=== PATIENT | female | born 1985 | race Caucasian/White ===

== ENCOUNTER 2021-12-13 15:06 | Emergency (ER) | payer OTHER ==
[~2021-12-13 15:06] MED LIST: IBUPROFEN800 MG PO
[2021-12-13 15:41] LABS: BASOPHIL 0.6 % (0-2); EOSINOPHIL 5.7 % (0-5); HCT 41.1 % (37.0-47.0); HGB 13.5 g/dl (12.5-16.0); LYMPHOCYTE 35.2 % (15-48); MCH 27.9 pg (25.0-31.0); MCHC 32.8 g/dL (32.0-36.0); MCV 84.9 fL (78.0-100.0); MONOCYTE 10.7 % (0-12); MPV 11.3 fL (6.0-9.5); NEUTROPHIL 47.5 % (41-80); NRBC 0; PLT 209 K/uL (150-400); RBC 4.84 M/uL (4.20-5.40); RDW 13.9 % (11.5-14.0); WBC 7.8 K/uL (4.0-10.5)
[2021-12-13 15:44] LABS: ALBUMIN 3.8 g/dL (3.4-5.0); BILIRUBIN - TOTAL 0.6 mg/dL (0.2-1.0); BUN/CREAT RATIO (CALC) 21.3 RATIO; CREATININE 0.75 mg/dL (0.51-0.95); GLOBULIN (CALCULATION) 3.8 g/dL; POTASSIUM 3.6 mmol/L (3.5-5.1); TOTAL PROTEIN 7.6 g/dL (6.4-8.2)
[2021-12-13 15:55] LABS: BILIRUBIN NEGATIVE (NEGATIVE); BLOOD 1+ Ery/uL (NEGATIVE); CLARITY CLEAR (CLEAR); COLOR YELLOW (YELLOW); GLUCOSE (U) NORMAL (NORMAL); LEUKOCYTES NEGATIVE Leu/uL (NEGATIVE); NITRITE NEGATIVE (NEGATIVE); PROTEIN NEGATIVE (NEGATIVE); SPECIFIC GRAVITY >=1.030 (1.001-1.030); UROBILINOGEN 0.2 mg/dL (0.2-1.0); pH 5.5 (5.0-9.0)
[2021-12-13 16:04] LABS: BACTERIA 1+
[2021-12-13] MEDS ORDERED: PEPCID AC20 MG PO (18:55)
[2021-12-13] MEDS ORDERED: REGLAN5 MG PO (18:55)
== END 2021-12-13 19:25 | disposition home or self-care (01) ==
LOC: FER 15:06
PROVIDERS: Physician Assistant
DX: R10.13 Epigastric pain (principal); I10 Essential (primary) hypertension; Z79.899 Other long term (current) drug therapy
CPT/HCPCS: 36415; 71045; 80053; 81001; 84484; 85025; 93005; 96372; J0500; J2405; J2765; J7030; Q9967